=== PATIENT | female | born 1975 | race Caucasian/White ===

== ENCOUNTER 2024-04-14 10:51 | Outpatient (RCR) | payer OTHER, SELFPAY ==
[2024-01-28 09:06] VITALS: BP 125/69; PULSE 74; O2SAT 98
== END 2024-04-14 12:10 | disposition home or self-care (01) ==
LOC: HO.PT 10:51
PROVIDERS: PCP Internal Medicine; Visit Provider Internal Medicine
DX: M62.838 Other muscle spasm (principal); M48.00 Spinal stenosis, site unspecified; M43.6 Torticollis
CPT/HCPCS: 97014; 97110; 97140; 97162; 97530

== ENCOUNTER 2024-11-01 10:39 | Outpatient (REF) | payer OTHER, SELFPAY ==
--- NOTE | ~2024-11-01 | XR_ITS ---
CLINICAL HISTORY: M50.90 - Cervical disc disorder, unspecified, unspecified cervical region --- Additional Notes or Special Instructions: a p, lateral with flex ext views 4-view cervical spine Comparison: None Findings: No fractures or dislocations. Normal vertebral body alignment. There is mild degenerative narrowing of posterior C5-6 disc space on extension. Lung apices unremarkable Impression: Vertebral bodies are normal in height. Mild narrowing of the posterior C5-6 disc space during extension No subluxation on flexion and extension views. This document has been electronically signed by: John Stover MD on 11/08/2024 22:04:49
== END 2024-11-01 10:40 | disposition home or self-care (01) ==
LOC: HO.HOSX 10:39
PROVIDERS: PCP Internal Medicine; Referring Provider Physical Medicine & Rehabilitation; Visit Provider Physician Assistant
DX: M50.90 Cervical disc disorder, unspecified, unspecified cervical region (principal)
CPT/HCPCS: 72050

== ENCOUNTER 2024-11-01 10:39 | Outpatient (AMB) | payer OTHER, SELFPAY ==
--- OUTSIDE RECORDS SUMMARY | 2024-10-31 23:59 | XMS_ITS | Continuity of Care Document ---
Author Organization [facility] Address [address] [place] [address]- Care Team Providers Care Derrick Follower Name Role Phone Cricket Rojas MD Primary Care Physician [place] [facility] [place]24 - 10/31/24 [facility] [address] [place], [place] [address] Encounter Type: Triage Allergies, Adverse Reactions, Alerts No Known Allergies Immunizations Given and Recorded Vaccine Date Status Refusal Reason SARS-CoV-2 (COVID-19) mRNA BNT-162b2 vac 09/16/20 Recorded SARS-CoV-2 (COVID-19) mRNA BNT-162b2 vac 08/26/20 Recorded influenza virus vaccine, inactivated 02/20/18 Anselmo rded influenza virus vaccine, inactivated 01/24/16 Anselmo rded influenza virus vaccine, inactivated 01/24/15 Anselmo rded influenza virus vaccine, inactivated 04/14/14 Anselmo rded influenza virus vaccine, inactivated 05/11/12 Anselmo rded influenza virus vaccine, inactivated 01/30/10 Anselmo rded tetanus/diphtheria/pertussis, acel(Tdap) 10/11/15 Recorded tetanus-diphtheria toxoids (Td) 1 01/27/06 Given 1Admin Note: [facility] Medications Acetaminophen = 1,300 mg, By Mouth, Every 8 hours, PRN Pain , Mild, 0 Refills, Maintenance, 06/21/20 10:01:00 AM EST, Partial fill upon patient request if the prescription is for a schedule II opioid drug. Start Date: 06/21/20 Status: Ordered Repeat number: 1 citalopram 20 mg oral tablet 0 Refills, Maintenance, 01/29/22 9:50:00 AM EDT, Partial fill upon patient request if the prescription is for a schedule II opioid drug. Start Date: 01/29/22 Status: Ordered Repeat number: 1 diazepam 5 mg oral tablet 5 mg, 1, tablet, By Mouth, 2 times a day, PRN, # 30 tablet, Refills 0, Tot. Refills 0, Maintenance,as needed for anxiety, 04/14/24 1:47:00 PM EST, Route to Pharmacy Electronically, [id number], Partial fill upon patient request if the prescription is for a schedule II opioid drug., 161.5, cm, 03/23/24 8:19:00 EST, Height, 90.3, kg, 03/23/24 8:19:00 EST, Dry Weight Start Date: 04/14/24 Status: Ordered Quantity: 30.0 Unit: tablet Repeat number: 1 Ibuprofen 200 mg - 3 tabs, By Mouth, Every 8 hours, PRN, Refills 0, Maintenance, Pain , Moderate, 06/21/20 10:03:00 AM EST, Partial fill upon patient request if the prescription is for a schedule II opioid drug. Start Date: 06/21/20 Status: Ordered Repeat number: 1 methocarbamol 500 mg oral tablet 1 tablet = 500 mg, By Mouth, 3 times a day, PRN Spasm, # 90 tablet, 0 Refills, Maintenance, :37:00 AM EDT, Tablet, [facility], Partial fill upon patient request if the prescription is for a schedule II opioid drug., 161.5, cm, 10/20/23 12:58:00 EDT, Height Start Date: 01/13/24 Status: Ordered Quantity: 90.0 Unit: tablet Repeat number: 1 Misc Rx Calcium, Magnesium, Zinc, Vitamin D 1000units, By Mouth, Daily, Refills 0, Maintenance, 06/21/20 10:04:00 AM EST, Supply Start Date: 06/21/20 Status: Ordered Repeat number: 1 Misc Rx Vitamin B 6, By Mouth, Daily, Refills 0, Maintenance, 06/21/20 10:06:00 AM EST, Supply Start Date: 06/21/20 Status: Ordered Repeat number: 1 Misc Rx Vitamin B 2 100mg, By Mouth, Daily, Refills 0, Maintenance, 06/21/20 10:06:00 AM EST, Supply Start Date: 06/21/20 Status: Ordered Repeat number: 1 Super B Complex 1 tablet-with Vitamin C, By Mouth, Daily, 0 Refills, Maintenance, 06/21/20 10:08:00 AM EST, Partial fill upon patient request if the prescription is for a schedule II opioid drug. Start Date: 06/21/20 Status: Ordered Repeat number: 1 traMADol 50 mg oral tablet 1 tablet-2 tablets, By Mouth, Every 8 hours, PRN Pain , Moderate, # 30 tablet, 0 Refills, Maintenance, 10/01/24 9:51:00 PM EDT, Tablet, [facility], Partial fill upon patient request if the prescription is for a schedule II opioid drug., 161.5, cm, 03/23/24 8:19:00 EST, Height, 90.3, kg, 03/23/24 8:19:00 EST, Dry Weight Start Date: 10/01/24 Status: Ordered Quantity: 30.0 Unit: tablet Repeat number: 1 Problem List Condition Confirmation Course Effective Dates Status Health St atus Informant Alkaline phosphatase elevation Confirmed Active Chronic low back pain; PSSP Confirmed Active Generalized anxiety disorder; Lexapro, Zoloft, fluoxetine all unhelpful Confirmed Active Impaired fasting glucose Confirmed Active Trace to mild mitral regurgitation, echo 11/24 Confirmed Active Cervicalgia Confirmed Active Obese class I Confirmed Active MISHA (obstructive sleep apnea) Confirmed Active Social History Social History Type Response Smoking Status Never (less than 100 in lifetime) entered on: 01/29/22 Sex Sex Representation Female (finding) Patient Care team information Care Team Personnel Name: Cricket Rojas MD Position: [facility] Physician - Primary Care Member Role: PCP Address: [address] [place] [address] Telecom: Care Team Related Persons Name: JUAN DAVID Insurance Providers Guarantor name: JEREMIAH DAVID Health Plan Information #: 1 Payer: [employer] Payer Identifier: ZAFAR Member Number: [id number] Group Number: [id number] Subscriber Identifier: [id number] Relationship to Subscriber: spouse Coverage Type: Commercial Indemnity Coverage Verification Date: NA Telecom: ZAFAR Address: NA
--- NOTE | 2024-11-01 10:58 | HO.SPINEOV ---
Intake Visit Reasons: cervical radiculopathy Intake Note: Mrs. Hunter is here today c/o neck pain. MRI done @ [place] (brought disc). Surveillance Systems Engineer Required: No Assessment & Plan Assessment & Plan (1) Cervical disc disorder: Code(s): M50.90 - Cervical disc disorder, unspecified, unspecified cervical region Category: Medical Plan Dear Dr Joseph, Thank you for referring Mrs Hunter to our office today. This is a very nice 49-year-old female presents to the office today for evaluation of 2 separate issues. The 1st and most prominent right now in her life is pain going down her left arm into her forearm. There is a component of neck pain as well. The patient has been through rigorous conservative treatment for this as it has been going on now for 5 or 10 years. He has been getting progressively worse over time. She has tried physical therapy, anti-inflammatories like Motrin, also using tramadol and methocarbamol to help. She has done activity modifications as well. The pain does bother her at night and when she is doing activities such as working on the computer. The patient also has undergone 2 injections at C5-6. The 1st 1 worked very well, a subsequent injection only made things worse. She has a new MRI done at [facility] showing severe foraminal narrowing at C5-6. She has also had an issue with back pain shooting down her left posterior thigh into the hamstring as well as into the lateral thigh with some numbness. This is particularly worse with activity. She is able to walk 3 miles a day multiple times a week. She will be an discomfort by the time she finishes. When she sits down it seems to get better. She has undergone lumbar injections as well. There has been some intermittent relief there but nothing profound. She also underwent underwent physical therapy on her low back as well. Also takes anti-inflammatories etc. for this in addition to her cervical spine. Patient comes in today with an MRI done at [facility] showing degenerative disc disease at L5-S1. PMH: Very healthy young woman, she has a history of sleep apnea and uses a CPAP but other than that no major medical issues or systemic medical problems. Social hx: Does not smoke, occasionally uses alcohol Medications: Tramadol, Motrin, methocarbamol, Valium as needed for anxiety and citalopram him. Allergies: None Physical exam: Awake alert oriented no acute distress, strength in the upper and lower extremities as well as reflexes are normal. Imaging review: Cervical MRI done at [facility] shows normal curvature of the cervical spine, she has a degenerative disc at C5-6 with severe bilateral neuroforaminal stenosis, worse on the left. No spinal cord impingement is seen. Lumbar MRI shows similar findings at L5-S1 where there are Modic endplate changes and disc bulging, seems to be worse on the right than the left. There is compression of the right S1 nerve root in the lateral recess. No significant central or foraminal stenosis seen. Impression: 49-year-old female presents with 2 separate issues, cervical and lumbar. The 1st being a left C6 radiculopathy that has been shooting down her arm now getting steadily worse over the last 5-10 years. The patient has done rigorous amounts of conservative treatment and the symptoms only continued to get worse. It bothers her when she is trying to work, when she is sleeping or doing any activities. Her MRI clearly shows she has significant compression of the left C6 nerve root at the C5-6 disc space. I am going to speak with Dr. Duron but I think she would be a good candidate for ACDF versus total disc arthroplasty. We did review that procedure at length, risks, benefits etc.. Success rate quoted at 90%. With regard to her lumbar spine. She does have disc degeneration at L5-S1 with Modic endplate changes. Interestingly, she has more disc bulging and compression on the right S1 nerve root than on the left, however she seems to be getting a left S1 radiculopathy. I am not sure if this is just localized inflammation causing this. Either way, right now she is still able to walk 3 miles and the symptoms are somewhat more manageable than what is going on cervical spine. I told her we should hold off on doing anything right now and focus on the cervical spine. Once I have a chance to review everything with Dr. Duron, I will get back to the patient with a final plan. Thank you for allowing us to care for your patient. The total time spent with this visit with this patient was 45 minutes reviewing history, physical exam, cervical and lumbar imaging review, and implementation of treatment plan or further diagnostic testing Dov Duron MD,PhD [facility] Orders: Orders XR cervical spine 4V Today M50.90 - Cervical disc disorder, unspecified, unspecified cervical region Coding Level of Care Code New Pt Level 4 (75365) Diagnoses Cervical disc disorder M50.90
== END 2024-11-01 12:49 | disposition home or self-care (01) ==
LOC: HO.HNS 10:40
PROVIDERS: PCP Internal Medicine; Referring Provider Physical Medicine & Rehabilitation; Visit Provider Physician Assistant
DX: M50.90 Cervical disc disorder, unspecified, unspecified cervical region (principal)
CPT/HCPCS: 99204

== ENCOUNTER → 2024-11-01 12:47 | Outpatient (BNV) | payer OTHER, SELFPAY | PROVIDERS: PCP Internal Medicine; Referring Provider Physical Medicine & Rehabilitation; Visit Provider Radiology Diagnostic Radiology | DX: M50.322 Other cervical disc degeneration at C5-C6 level (principal) | CPT/HCPCS: 72050 ==

== ENCOUNTER 2024-12-30 06:01 | Day surgery (SDC) | payer OTHER, SELFPAY ==
[2024-11-25 11:09] VITALS: BMI 33.3
[2024-12-30] VITALS (11 sets, daily range): BP systolic 118–136; BP diastolic 72–81; PULSE 79–100; RESP 16–18; TEMP 36.1–36.2; O2SAT 94–97; BMI 33.3
--- NOTE | ~2024-12-30 | FL_ITS ---
EXAMINATION: FL GUIDANCE ONLY HISTORY: C5-C6 total disc arthroplasty COMPARISON: Correlation is made to plain films of the cervical spine dated 11/01/2024. TECHNIQUE: Fluoroscopy time: 11.7 seconds. Cumulative Dose: 2.9406 mGy. DAP: 0.6410 mGym2 Images: 2. FINDINGS: Fluoroscopic spot films of the cervical spine demonstrate placement of a disc prosthesis at the C5-6 level. FL/FL guidance in OR IMPRESSION: Fluoroscopy during procedure. Please see procedure report for additional information. Electronically signed by: Brijesh Huerta MD 12/30/2024 09:09 AM EDT
[2024-12-30] MEDS: Lactated Ringers 1,000 ML 100 ML IVCONT (06:22)
--- NOTE | 2024-12-30 07:04 | P.HPSUR_ITS ---
Pre-Procedural Eval Section A - 24 Hr Update-Section A only Date of Service: 12/30/24 The patient is an INPATIENT: No Changes since office visit: No Cold of Flu in the past 2 weeks, No New Medical Problems, No Changes in Medication and No Patient answered all questions The patient has been examined within 24 hours of the surgical procedure. The History & Physical has been completed within 30 days and I have reviewed it.: No Section B - Complete if H&P > 30 days Chief Complaint: Cervical disc disorder, unspecified, unspecified Allergies: Allergies Allergy/AdvReac Type Severity Reaction Status Date / Time No Known Allergies Allergy Verified 11/25/24 11:12 Review of Systems Sugical H&P ROS: Negative: Constitution, Cardiovascular, Respiratory, Neurological, Psychiatric, Hem-Onc, Allergic/Immunologic, Gastrointestinal, Genitourinary, Musculoskeletal, Integumentary, Endocrine and Eyes/Ears/Nose/Throat Exam Surgical H&P Exam: Normal: HEENT, Normal: Heart, Normal: Lungs, Normal: Extremities, Normal: Abdomen, Normal: Skin and Normal: Neurological (matthew ke,alert,oriented x 3 ) Plan Diagnosis/Plan: Unchanged C5-6 total disk arthroplasty Time Spent With Patient Time: Total time managing care of this patient today ___6_ minutes.
--- NOTE | 2024-12-30 07:20 | HO.ANESPROP2 ---
Documented by User: Idalia Guerrero NP 12/29/24 08:52 HPI - Anesthesia Eval Consult details Narrative: 49yo F for C5-6 Total Disc Arthroplasty PMFSH Active Problems Active Problems: All Active Problems Cervical disc disorder (Acute) Past Medical History Medical History (Updated 12/30/24 @ 06:23 by America Nathan, RN) Menopause IFG (impaired fasting glucose) Back pain Neck pain Anxiety MISHA on CPAP Surgical History Surgical History (Updated 11/25/24 @ 11:30 by Cecy Conn RN) S/P LASIK (laser assisted in situ keratomileusis) History of hysteroscopy (2020) Social History Social History (Updated 11/25/24 @ 11:12 by Cecy Conn RN) Household Members: Spouse Housing: House Are you a primary career orientation teacher to a significant other at home: No Do you presently have visiting nurse or other home services: No Patient Tobacco Use Status: Never used Tobacco Use of substances other than those prescribed or required for medical reasons: No Have you been hit, kicked, punched, or otherwise hurt by someone within the past year? If so, by whom?: No Are you DNR?: No Advance Directives: No Advance Directives Information Provided: Yes Advance Directives on File: No FDLMP: 04/2024 Poor oral hygiene: No Meds Allergies Allergy/AdvReac Type Severity Reaction Status Date / Time No Known Allergies Allergy Verified 11/25/24 11:12 Home Medications ?Medication ?Instructions ?Recorded ?Confirmed ?Last Taken ?Type citalopram 20 mg tablet 20 mg PO DAILY 11/25/24 11/25/24 Unknown History diazepam 5 mg tablet 5 mg PO BEDTIME PRN Anxiety 11/25/24 11/25/24 Unknown History methocarbamol 500 mg tablet 500 mg PO TID 11/25/24 11/25/24 Unknown History tramadol 50 mg tablet 50 mg PO Q4H PRN Pain 11/25/24 11/25/24 Unknown History Exam Height,Weight and Vital Signs: Height 5 ft 3.15 in Weight 85.6 kg Assessment and Plan Assessment Anesthesia Assessment: Chart Reviewed Documented by User: Lexus Cook NP 12/29/24 11:52 HPI - Anesthesia Eval Consult details Narrative: 49yo F for C5-6 Total Disc Arthroplasty MISHA on CPAP PMFSH Past Medical History Medical History (Updated 12/30/24 @ 06:23 by America Nathan, RN) Menopause IFG (impaired fasting glucose) Back pain Neck pain Anxiety MISHA on CPAP Surgical History Surgical History (Updated 11/25/24 @ 11:30 by Cecy Conn RN) S/P LASIK (laser assisted in situ keratomileusis) History of hysteroscopy (2020) Social History Social History (Updated 11/25/24 @ 11:12 by Cecy Conn RN) Household Members: Spouse Housing: House Are you a primary career orientation teacher to a significant other at home: No Do you presently have visiting nurse or other home services: No Patient Tobacco Use Status: Never used Tobacco Use of substances other than those prescribed or required for medical reasons: No Have you been hit, kicked, punched, or otherwise hurt by someone within the past year? If so, by whom?: No Are you DNR?: No Advance Directives: No Advance Directives Information Provided: Yes Advance Directives on File: No FDLMP: 04/2024 Poor oral hygiene: No Meds Allergies Allergy/AdvReac Type Severity Reaction Status Date / Time No Known Allergies Allergy Verified 11/25/24 11:12 Home Medications ?Medication ?Instructions ?Recorded ?Confirmed ?Last Taken ?Type citalopram 20 mg tablet 20 mg PO DAILY 11/25/24 11/25/24 Unknown History diazepam 5 mg tablet 5 mg PO BEDTIME PRN Anxiety 11/25/24 11/25/24 Unknown History methocarbamol 500 mg tablet 500 mg PO TID 11/25/24 11/25/24 Unknown History tramadol 50 mg tablet 50 mg PO Q4H PRN Pain 11/25/24 11/25/24 Unknown History Documented by User: Frances Marks, 12/30/24 08:15 [facility] Past Medical History Medical History (Updated 12/30/24 @ 06:23 by America Nathan, OSCAR) Menopause IFG (impaired fasting glucose) Back pain Neck pain Anxiety MISHA on CPAP Family History Family history of problems with anesthesia: No Surgical History Surgical History (Updated 11/25/24 @ 11:30 by Cecy Conn, OSCAR) S/P LASIK (laser assisted in situ keratomileusis) History of hysteroscopy (2020) History of Problems with Anesthesia: No Social History Social History (Updated 11/25/24 @ 11:12 by Cecy Conn, OSCAR) Household Members: Spouse Housing: House Are you a primary career orientation teacher to a significant other at home: No Do you presently have visiting nurse or other home services: No Patient Tobacco Use Status: Never used Tobacco Use of substances other than those prescribed or required for medical reasons: No Have you been hit, kicked, punched, or otherwise hurt by someone within the past year? If so, by whom?: No Are you DNR?: No Advance Directives: No Advance Directives Information Provided: Yes Advance Directives on File: No FDP: 04/2024 Poor oral hygiene: No Meds Allergies Allergy/AdvReac Type Severity Reaction Status Date / Time No Known Allergies Allergy Verified 11/25/24 11:12 Home Medications ?Medication ?Instructions ?Recorded ?Confirmed ?Last Taken ?Type citalopram 20 mg tablet 20 mg PO DAILY 11/25/24 11/25/24 Unknown History diazepam 5 mg tablet 5 mg PO BEDTIME PRN Anxiety 11/25/24 11/25/24 Unknown History methocarbamol 500 mg tablet 500 mg PO TID 11/25/24 11/25/24 Unknown History tramadol 50 mg tablet 50 mg PO Q4H PRN Pain 11/25/24 11/25/24 Unknown History Exam Exam Date and Time: 12/30/24 0720 Height,Weight and Vital Signs: Height 5 ft 3.15 in Weight 85.6 kg Vital Signs Temperature 96.9 F 12/30/24 06:04 Pulse Rate 82 12/30/24 06:04 Respiratory Rate 17 12/30/24 06:04 Blood Pressure 118/72 12/30/24 06:04 Pulse Oximetry 96 12/30/24 06:04 Oxygen Delivery Method Room Air 12/30/24 06:04 Temperature 96.9 F 12/30/24 06:04 Pulse Rate 82 12/30/24 06:04 Respiratory Rate 17 12/30/24 06:04 Blood Pressure 118/72 12/30/24 06:04 Pulse Oximetry 96 12/30/24 06:04 Oxygen Delivery Method Room Air 12/30/24 06:04 Airway Mallampati Class: III (small mouth opening) TM Dist: <=3cm Neck ROM: Limited Loose/Missing/Broken Teeth: No (patient denies any loose or broken teeth) Heart: S1S2 Lungs: CTAB Assessment and Plan Assessment Anesthesia Assessment: Anesthesia Plan Discussed and Chart Reviewed Final Anesthetic Review Family History of Problems with Anesthesia: No History of Problems with Anesthesia: No NPO: Yes ASA Class: II Final Preanesthetic Review: No Changes in Pt Med Stat, Meds/Allgs Chart Reviewed, Consent Obtained/Reviewed and Anes Risks/Benef Reviewed Patient Risk: Low Procedure Risk: Intermediate Anesthetic Plan Anesthetic Plan: GA and Agree w/ Assess. and Plan Disposition: Standard PACU
--- NOTE | 2024-12-30 08:57 | W.PM.OPN ---
Operative Note Operative Note Date of Service: 12/30/24 Narrative: Preoperative Diagnosis: Left cervical radiculopathy Procedure : C5-C6 total disc arthropathy Informed Consent was obtained for this operation. I have explained the nature, purpose and benefits of the operation. I have discussed the risks and benefit of the operation including possible complications or adverse events with patient/family. Alternative(s) were discussed with the patient with their relative benefits and risks as well as the consequences of not accepting the operation were included in obtaining consent. Surgeon: LIZET SANTIAGO MD, PHD Procedure Assisted By: travis Romo Description of Procedure: This patient is suffering from a left cervical radiculopathy due to degenerative disc disease C5-6 with compression of the left C6 nerve root. The patient was offered a total disc arthropathy The procedure complications were explained. The patient was consented. The patient was brought to the operating room and endotracheally intubated. The patient was put in supine position with slight extension of the neck. Prep and drape was done followed by timeout. A mid cervical incision was made followed by opening of the platysma. The prevertebral fascia was reached following the natural planes while the physician assistant teaching professor provided manual retraction. The prevertebral fascia was opened to expose the disc space. A spinal needle was placed in the disk space to confirm the correct level with xray. The longus colli muscles were released bilaterally and a self retaining retractor was inserted. Two Kenton pins were placed in the C5-6 vertebral bodies parallel to the endplates and distraction was give over the interspace. The discectomy was completed toward the posterior annulus of the disc. The microscope was brought in. The remainder of the discectomy was completed. The posterior ligament was opened and resected to expose the underlying dura. Bilateral foraminotomies were done. A trial implant was inserted to determine the correct implant size is. Then an artificial disc of sentinel spine of 15 x 14 and 5 mm height was inserted under fluoroscopic guidance. Final x-rays in AP and lateral projection showed a satisfactory position of the implant. The physician assistant teaching professor took over. The Kenton pin was removed. Hemostasis was done. He closed the incision in 2 layers with a 3-0 Vicryl. Steri-Strips used to approximate incision. An OpSite with Tegaderm was used to cover the incision. All sponge and needle counts were correct. Patient was extubated and transported in stable is to recovery room. Anesthesia: General Estimated Blood Loss (ml): 20 Duration of Surgery: 60 minutes Postoperative Plan: Discharge home Complications: None
--- NOTE | 2024-12-30 09:08 | PM.DS ---
DS: Providers Provider Date of Service: 12/30/24 Date of discharge: 12/30/24 Primary care physician: Cricket Rojas MD Admitting clinician: Sharan Duron DS: Diagnosis Discharge Diagnosis (1) Cervical disc disorder: Status: Acute DS: Summary Time Attestation Discharge Coordination Time (in mins): 5 Quality: Safe Use of Opioids Does Pt have an Active Cancer Diagnosis on the Problem List?: No Quality: Stroke Does the patient have a stroke diagnosis?: No Physical Exam Vital Signs: Vital Signs: Last Vital Signs Temp 96.9 F 12/30/24 06:04 Pulse 82 12/30/24 06:04 Resp 17 12/30/24 06:04 BP 118/72 12/30/24 06:04 Pulse Ox 96 12/30/24 06:04 O2 Del Method Room Air 12/30/24 06:04 BMI result Body Mass Index 33.3 Discharge Plan Discharge Patient Disposition: Home, Self-Care Referrals: Cricket Rojas MD [Primary Care Provider, Internal Medicine] - 1 Week Discharge Medications: New oxycodone 5 mg tablet 5 mg PO Q4H PRN (Reason: pain) Qty: 20 0RF Rx Instructions: Partial Fill upon patient request. docusate sodium [Colace] 100 mg capsule 100 mg PO BID Qty: 20 0RF Continued methocarbamol 500 mg Tablet 500 mg PO TID tramadol 50 mg tablet 50 mg PO Q4H PRN (Reason: Pain) citalopram 20 mg tablet 20 mg PO DAILY diazepam 5 mg Tablet 5 mg PO BEDTIME PRN (Reason: Anxiety) Discharge Orders: Discharge Order (Routine); Ordered 12/30/24 Ordered By: Dov Peres Diet: Advance to usual diet Activity on Discharge: As tolerated Activity Restrictions/Additional Instructions: After your spinal surgery we ask you to observe the following restrictions/guidelines: Activity: It is normal to feel some discomfort as you increase your activity, but that will improve with time. We ask you avoid heavy lifting or acitivities that cause pain. As a general rule, 8lbs is a safe limit for lifting right after surgery. Walk as much as you feel comfortable but not to exhaustion. You will feel extra tired the first few days after surgery. Stay well hydrated. It is OK to walk up and down stairs You may return to driving when you are off narcotics (such as vicodin, oxycodone, dilaudid, etc), and you are back to normal functional capacity. If you have any concerns please check with office before driving. Return to work is specific to each patient and each surgery, so please speak with your doctor/PA at first follow up. Please bring paperwork such as FMLA at that time if you need it filled out. Medications: For optimum pain control, it is best to start with a combination of 500 mg of Tylenol every 4 hours with 600 mg of Motrin every 8 hours, and use narcotics as needed in between for breakthrough pain. We will give you a short supply of narcotics after surgery (usually one weeks worth). If you need more please call the office but do not use more than prescribed. You will need to give our office 48 hours notice if you need narcotics refilled and we do not fill narcotics on weekends or evenings. If you are on a narcotic, it is a good idea to take a stool softener such as colace or senna to avoid constipation If you take blood thinner such as aspirin, Plavix, Coumadin, Effient, Eliquis etc for conditions such as Afib, DVT, Pulmonary embolus, coronary disease, stents etc please speak with your surgeon about specific details as to when you can resume these medications. You can resume NSAIDs on post op day 1 (eg: Motrin, Naproxen, etc). Follow up: Please call the office, , after surgery to arrange a 3 week follow up for wound check. Wound Care: You may remove your dressing on the first day after surgery. ?You may ?leave open to air. Please do not remove the steri strips underneath. they will fall off on their own in one week. IT IS NORMAL FOR THE WOUND TO OOZE OR BE BLOODY FOR A FEW DAYS AFTER SURGERY. ?IF THIS HAPPENS JUST PLACE NEW DRESSING OVER IT TO AVOID STAINING CLOTHES. You may shower on post op day # 1 We ask that you do not let the water soak the wound. If it does get wet, just towel dry lightly. Please do not scrub your incision or place any type of chemical/ointment on the wound. No tub baths, pools or jacuzzis for one month. If you have any leaking or redness from your wound, or fevers, please call office Print Language: Divehi
[2024-12-30] MEDS: oxyCODONE HCl Immed Release 5 MG TABLET PO (10:00)
== END 2024-12-30 10:56 | disposition home or self-care (01) ==
PROVIDERS: PCP Internal Medicine; Visit Provider Neurological Surgery
PROC: (CPT 22856; principal; 2024-12-30 07:30)
DX: M50.122 Cervical disc disorder at C5-C6 level with radiculopathy (principal); R20.0 Anesthesia of skin; G47.33 Obstructive sleep apnea (adult) (pediatric); R73.01 Impaired fasting glucose; M54.9 Dorsalgia, unspecified; F41.9 Anxiety disorder, unspecified; Z99.89 Dependence on other enabling machines and devices; Z79.899 Other long term (current) drug therapy; Z98.890 Other specified postprocedural states
CPT/HCPCS: 22856; C1776; J0131; J0461; J0690; J1596; J2003; J2371; J2405; J2704; J3010

== ENCOUNTER → 2024-12-30 06:01 | Outpatient (BNV) | payer OTHER, SELFPAY | PROVIDERS: PCP Internal Medicine; Visit Provider Neurological Surgery | DX: M50.90 Cervical disc disorder, unspecified, unspecified cervical region (principal); M50.122 Cervical disc disorder at C5-C6 level with radiculopathy | CPT/HCPCS: 22856; 99499 ==

== ENCOUNTER 2025-01-13 07:17 | Outpatient (REF) | payer OTHER, SELFPAY ==
--- NOTE | ~2025-01-13 | XR_ITS ---
EXAMINATION: XR CERVICAL SPINE CLINICAL INFORMATION: M50.90 - Cervical disc disorder, unspecified, unspecified cervical region COMPARISON: Radiographs on November 01, 2024 TECHNIQUE: 5 views of the cervical spine were obtained. FINDINGS: Disc spacer at C5-C6. Minimal anterolisthesis of C4 on C5 on the neutral, extension and flexion positions. No worsening listhesis with flexion or extension. No compression fracture. Prevertebral soft tissues are unremarkable. XR/XR cervical spine 4V IMPRESSION: Minimal anterolisthesis of C4 on C5 on the neutral, extension and flexion positions. Electronically signed by: Krystal Sanz MD 01/13/2025 02:11 PM EDT
== END 2025-01-13 07:18 | disposition home or self-care (01) ==
LOC: HO.HOSX 07:17
PROVIDERS: Visit Provider Physician Assistant
DX: M50.921 Unspecified cervical disc disorder at C4-C5 level (principal)
CPT/HCPCS: 72050

== ENCOUNTER 2025-01-13 12:44 | Outpatient (AMB) | payer OTHER, SELFPAY ==
--- NOTE | 2025-01-13 12:57 | HO.SPINEOV ---
Intake Visit Reasons: neck pain with xrays Intake Note: Mrs. Hunter is here today c/o neck pain Relay Associate Required: No Allergies No Known Allergies Allergy (Verified 01/13/25 12:58) Assessment & Plan Assessment & Plan (1) Cervical disc disorder: Code(s): M50.90 - Cervical disc disorder, unspecified, unspecified cervical region Category: Medical Plan Mrs Hunter is total disc arthroplasty. She was doing well and had significant improvement in her arm pain, but has noticed it left-sided neck pain as well as a posterior neck pain that seems to be troubling her. It is quite intense at times in his giving her pain at night. She has been taking ibuprofen, Tylenol and methocarbamol. She came in today just to check her x-rays and make sure the implant was okay. Her x-rays show that there is no change in position of the implant compared to what looks like on the inferior operative x-rays. With flexion and extension I see what looks like adequate range of motion of the implant. I think clinically she may just be dealing with some neck pain from the surgery itself and could be something like muscle spasm. I prescribed methocarbamol, encouraged her to take anti-inflammatories. She is going to do some gentle physical therapy exercises that she has done before, and hopefully tincture of time will take care of this. I will see her back in the office again in a few weeks. I will review her x-rays with Dr. Duron as well. Dov Duron MD, PhD [facility] [employer] Orders: Orders XR cervical spine 4V Today M50.90 - Cervical disc disorder, unspecified, unspecified cervical region Medications: New methocarbamol 750 mg PO Q8H 30 tabs 2RF Coding Level of Care Code Global (00896) Diagnoses Cervical disc disorder M50.90
== END 2025-01-13 13:19 | disposition home or self-care (01) ==
LOC: HO.HNS 12:45
PROVIDERS: PCP Internal Medicine; Visit Provider Physician Assistant
DX: M50.90 Cervical disc disorder, unspecified, unspecified cervical region (principal)
CPT/HCPCS: 99024

== ENCOUNTER → 2025-01-13 12:47 | Outpatient (BNV) | payer OTHER, SELFPAY | PROVIDERS: Visit Provider Radiology Body Imaging | DX: M43.12 Spondylolisthesis, cervical region (principal) | CPT/HCPCS: 72050 ==

== ENCOUNTER 2025-02-21 14:17 | Outpatient (AMB) | payer OTHER, SELFPAY ==
--- NOTE | 2025-02-21 14:44 | A.SPINEOV_ITS ---
Intake Visit Reasons: late post op Intake Note: Mrs. Hunter is here today for her post-op visit. Allergies No Known Allergies Allergy (Verified 01/13/25 12:58) Assessment & Plan Assessment & Plan (1) Back pain: Code(s): M54.9 - Dorsalgia, unspecified Category: Medical Plan Mrs Hunter is here in follow-up. She has been doing well from the standpoint of her total disc arthroplasty at C5-6. Her arm pain is gone and she just deals with an occasional neck stiffness along her left trapezius. Her wound is healed up beautifully. She wanted to talk with me today as well about her lumbar spine. She has been dealing with back pain for a very long time. There has been a steady progression of increasing back pain that has now started to radiate down her left leg. She is a patient well known to the [facility] where she has undergone physical therapy as well as rounds of in jections. In general the injections will help her, but they do not have any lasting effect. The last time she got them was a few years ago and discontinued getting them because of the temporary effect. She is having a very hard time standing and walking. She is to be able to take a 3 mi walk with her , but now it is getting to where it is too painful and she will have to stop to try to stretch to make it through the walk. There is also a feeling of tingling and numbness down her leg as well. She is taking ibuprofen throughout the day to try to manage it. On exam her strength and reflexes are okay. I looked at her lumbar MRI at [facility] from 2021 as well as the 1 done at [facility] last year that I have here in the office on a disc. I can see that she has a collapsed L5-S1 disc space with Modic endplate changes type 1 with bilateral lateral recess stenosis contacting the S1 nerve bilaterally. I can see through the years it has been steadily getting worse. I think we need to repeat the MRI as the intensity of the symptoms has amplified over the last year since the previous MRI was done. Typically this is something Dr. Duron would treat with anterior lumbar interbody fusion. She has no history of previous abdominal surgeries and for a single degenerative disc without any sign of other degeneration at other levels I think she would be an excellent candidate. Once the updated MRIs available I will bring her back in the office and we can review surgery again with Dr. Duron. Total amount of time spent in this visit was 20 minutes in discussion of symptom s, lumbar imaging results and subsequent plan of care Dov Duron MD,PhD [facility] Orders: Orders MR lumbar spine wo con Today M54.9 - Dorsalgia, unspecified Coding Level of Care Code Est Pt Level 3 (77502) Diagnoses Back pain M54.9
== END 2025-02-21 15:18 | disposition home or self-care (01) ==
LOC: HO.HNS 14:17
PROVIDERS: Visit Provider Physician Assistant
DX: M54.9 Dorsalgia, unspecified (principal)
CPT/HCPCS: 99024

== ENCOUNTER 2025-03-23 16:36 | Outpatient (REF) | payer OTHER, SELFPAY ==
--- NOTE | ~2025-03-23 | MR_ITS ---
EXAMINATION: MR LUMBAR SPINE WITHOUT CONTRAST CLINICAL INFORMATION: M 54.9 COMPARISON: None available. TECHNIQUE: MRI of the lumbar spine was obtained using routine sequences without contrast. FINDINGS: Left rib-bearing vertebra labeled T12. No bone marrow STIR signal abnormality. Multilevel marginal osteophyte formation and disc desiccation pronounced at L5-S1 and L1-2. 1 mm retrolisthesis L1-2. Conus medullaris ends at pedicle of L1 with normal signal. T11-12: No disc herniation. No neuroforamina stenosis. T12-L1: No disc herniation no neuroforamina stenosis. L1-2: Broad-based disc bulging. No central spinal canal or neuroforamina stenosis. L2-3: Broad-based disc bulging. Facet joint hypertrophy. Left neuroforamina narrowing. No central spinal canal stenosis. L3-4: Broad-based disc bulging. Facet joint and ligamentum flavum hypertrophy. Reduced AP diameter of the thecal sac. Bilateral neuroforamina narrowing. L4-5: Broad-based disc bulging. Facet joint and ligamentum flavum hypertrophy. Reduced AP diameter of the thecal sac and neuroforamina. L5-S1: Broad-based central, subarticular disc herniation encroaching right S1 nerve root on its lateral recess. Bilateral facet joint hypertrophy resulting in bilateral neuroforamina stenosis encroaching the L5 exiting nerve roots. No prevertebral compartment hematoma, mass or fluid collection. 2.5 cm exophytic hyperintense T2 lesion in the anterior lower pole right kidney. Less than 1 cm cystic lesion left kidney. MR/MR lumbar spine wo con IMPRESSION: Multilevel lumbar spondylosis resulting in grade 1 retrolisthesis L1 to and central spinal canal stenosis L3-4, L4-5 and left neuroforamina and stenosis at L2-3 and bilateral neuroforamina stenosis at L5-S1. Central/right subarticular broad-based disc herniation L5-S1 encroaching right S1 nerve root. Cystic lesions, kidneys.. Electronically signed by: Nathanael Burkett MD 03/24/2025 06:46 AM EST
== END 2025-03-23 16:37 | disposition home or self-care (01) ==
LOC: HO.MRI 16:36
PROVIDERS: Visit Provider Physician Assistant
DX: M54.9 Dorsalgia, unspecified (principal)
CPT/HCPCS: 72148

== ENCOUNTER → 2025-03-23 16:46 | Outpatient (BNV) | payer OTHER, SELFPAY | PROVIDERS: Visit Provider Radiology Diagnostic Radiology | DX: M47.816 Spondylosis without myelopathy or radiculopathy, lumbar region (principal); M48.061 Spinal stenosis, lumbar region without neurogenic claudication; M51.26 Other intervertebral disc displacement, lumbar region; N28.1 Cyst of kidney, acquired | CPT/HCPCS: 72148 ==